=== PATIENT | male | born 1985 | race Caucasian/White ===

== ENCOUNTER 2018-09-26 08:18 | Emergency (ER) | payer OTHER ==
[2018-09-26] MEDS ORDERED: IBUPROFEN 600 MG TAB PO ONE (08:30)
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
[2018-09-26 09:35] VITALS: BP 134/98
== END 2018-09-26 09:34 | disposition home or self-care (01) ==
DX: S50.811A Abrasion of right forearm, initial encounter (principal); S50.812A Abrasion of left forearm, initial encounter; V49.49XA Driver injured in collision with other motor vehicles in traffic accident, initial encounter; Y92.410 Unspecified street and highway as the place of occurrence of the external cause